=== PATIENT | female | born 1995 | race Caucasian/White ===

== ENCOUNTER 2020-03-14 22:11 | Emergency (ER) | payer OTHER, MEDICAID ==
[2020-03-14] MEDS ORDERED: ONDANSETRON ODT 4 MG ONE (22:22)
[2020-03-14] MEDS ORDERED: ONDANSETRON ODT 4 MG PO ONE (22:30)
[2020-03-14] MEDS ORDERED: PLEASE ENTER ALLERGIES MC SCH (22:30)
[2020-03-14 22:39] LABS: HCG UR SG 1.028 (1.003-1.030)
[2020-03-14 22:42] LABS: MICROSCOPIC INDICATED
[2020-03-14 22:51] LABS: BASOPHILS # (AUTO) 0.04 x10^3/uL (0-0.1); BASOPHILS % (AUTO) 0 % (0-1); EOSINOPHILS % (AUTO) 1 % (1-7); LYMPHOCYTES # (AUTO) 2.36 x10^3/uL (1-3.4); LYMPHOCYTES % (AUTO) 20 % (22-44); MD NO; MEAN CORPUSCULAR HEMOGLOBIN 30.2 pg (27.0-34.8); MEAN CORPUSCULAR HGB CONC 34.4 g/dL (32.4-35.8); MEAN CORPUSCULAR VOLUME 87.8 fL (80-100); MEAN PLATELET VOLUME 7.9 fL (7.4-10.4); MONOCYTES # (AUTO) 0.74 x10^3/uL (0.2-0.8); MONOCYTES % (AUTO) 6 % (2-9); NEUTROPHILS # (AUTO) 8.33 x10^3/uL (1.8-6.8); NEUTROPHILS % (AUTO) 72 % (42-75); PLATELET COUNT 304 x10^3/uL (130-400); RED BLOOD COUNT 4.53 x10^6/uL (3.82-5.3); RED CELL DISTRIBUTION WIDTH 12.6 % (9.6-15.2)
[2020-03-14 23:06] LABS: ALANINE AMINOTRANSFERASE 26 U/L (12-78); ALBUMIN 3.6 g/dL (3.4-5.0); ANION GAP 9 mmol/L (5-15); CALCIUM 8.8 mg/dL (8.5-10.1); CHLORIDE 107 mmol/L (98-107); CREATININE 0.93 mg/dL (0.55-1.02)
[2020-03-14 23:25] LABS: ALKALINE PHOSPHATASE 88 U/L (45-117); BILIRUBIN,TOTAL 0.3 mg/dL (0.2-1.0)
[2020-03-14 23:59] VITALS: BP 154/90
[2020-03-15] MEDS ORDERED: PLEASE ENTER HEIGHT AND WEIGHT MC SCH (00:30)
== END 2020-03-15 00:04 | disposition home or self-care (01) ==
LOC: ED 03-15 00:01
DX: N30.00 Acute cystitis without hematuria (principal); R11.0 Nausea; R10.9 Unspecified abdominal pain; R30.0 Dysuria; Z88.0 Allergy status to penicillin
CPT/HCPCS: 36415; 80053; 81001; 81025; 85025; 87086; 87147; 99283; Q0162